=== PATIENT | male | born 1940 | race Caucasian/White ===

== ENCOUNTER 2023-01-27 09:38 | Inpatient (IN) | payer OTHER, MEDICARE ==
[2023-01-27] MEDS ORDERED: Boostrix 0.5 ML (Tdap) VIAL (>/=7 yrs of age) ONE (11:14)
[2023-01-27] MEDS ORDERED: fentaNYL 50 mcg/mL 1 mL Vial ONE (12:17)
[2023-01-27] MEDS ORDERED: Ipratropium/Albuterol 3 ML NEB NEB PRN (12:20)
[2023-01-27] MEDS ORDERED: hydrALAZINE 20 MG/ML VIAL SLOW IVP PRN (12:20)
[2023-01-27] MEDS ORDERED: Ondansetron PF 4 MG/2 ML Vial IVP PRN (12:20)
[2023-01-27 12:51] LABS: #Monocytes 0.4 thou/uL (0.11-0.59); #Neutrophils 2.6 thou/uL (1.40-6.50); %Eosinophils 0.3 % (0.0-10.0); %Monocytes 12.4 % (0.0-10.0); %Neutrophils 75.4 % (42.0-75.0); Hematocrit 33.1 % (42.0-52.0); Hemoglobin 11.1 g/dL (14.0-18.0); Mean Corpuscular HGB CONC 33.5 g/dL (32.0-36.0); Mean Corpuscular Hemoglobin 30.8 pg (27.0-31.0); Mean Corpuscular Volume 91.9 fl (78.0-98.0); Mean Platelet Volume 9.6 fL (7.4-10.4); RBC Distribution Width 14.3 % (11.5-14.5); White Blood Cell (WBC) Count 3.5 10x3/uL (4.8-10.8)
[2023-01-27 12:53] LABS: Platelet Count 65 10x3/uL (130-400)
[2023-01-27 13:04] LABS: INR-International Normal Ratio 1.1; PTT 31.8 sec (22.9-36.1); Prothrombin Time 14.9 sec (12.0-14.7)
[2023-01-27 13:20] LABS: Anion Gap 10 mmol/L (10-20); BUN (Urea Nitrogen) 15 mg/dL (8.4-25.7); Calc. Creatinine Clearance 0 mL/min (70-130); Calcium 9.7 mg/dL (7.8-10.44); Carbon Dioxide 26 mmol/L (23-31); Chloride 103 mmol/L (98-107); Estimated GFR 82; Glucose 128 mg/dL (83-110); Magnesium 1.8 mg/dL (1.6-2.6); Phosphorus 2.6 mg/dL (2.3-4.7); Potassium 4.2 mmol/L (3.5-5.1); Sodium 135 mmol/L (136-145)
[2023-01-27] MEDS: Acetaminophen 500 MG TAB PO SCH ×2 (15:18→17:57)
[2023-01-27 16:57] VITALS: BMI 23.1
[2023-01-27] MEDS ORDERED: CEFAZOLIN 2 GM in Sodium Chloride 0.9% 100 ML IVPB SCH (17:00)
[2023-01-27] MEDS ORDERED: traMADol HCl 50 MG TAB PO PRN (17:18)
[2023-01-27] MEDS: traMADol HCl 50 MG TAB PO SCH (17:58)
[2023-01-27] MEDS: Morphine 2 MG/ML VIAL SLOW IVP PRN (19:55)
[2023-01-28] MEDS: traMADol HCl 50 MG TAB PO SCH ×5 (00:10→23:10)
[2023-01-28] MEDS: Morphine 2 MG/ML VIAL SLOW IVP PRN ×4 (00:11→23:09)
[2023-01-28] MEDS: Acetaminophen 500 MG TAB PO SCH ×5 (00:11→23:10)
[2023-01-28 05:39] LABS: #Eosinphils 0.1 thou/uL (0.0-0.7); #Monocytes 0.6 thou/uL (0.11-0.59); #Neutrophils 2.1 thou/uL (1.40-6.50); %Eosinophils 2.3 % (0.0-10.0); %Lymphocytes 16.7 % (21.0-51.0); %Monocytes 18.7 % (0.0-10.0); Hematocrit 32.9 % (42.0-52.0); Hemoglobin 10.8 g/dL (14.0-18.0); Mean Corpuscular HGB CONC 32.8 g/dL (32.0-36.0); Mean Corpuscular Hemoglobin 30.5 pg (27.0-31.0); Mean Corpuscular Volume 92.9 fl (78.0-98.0); Mean Platelet Volume 9.4 fL (7.4-10.4); RBC Distribution Width 14.4 % (11.5-14.5); Red Blood Cell (RBC) Count 3.54 mill/uL (4.70-6.10); White Blood Cell (WBC) Count 3.4 10x3/uL (4.8-10.8)
[2023-01-28 05:46] LABS: Platelet Count 59 10x3/uL (130-400)
[2023-01-28 06:05] LABS: Anion Gap 11 mmol/L (10-20); BUN (Urea Nitrogen) 13 mg/dL (8.4-25.7); Calc. Creatinine Clearance 75 mL/min (70-130); Calcium 9.1 mg/dL (7.8-10.44); Carbon Dioxide 25 mmol/L (23-31); Chloride 104 mmol/L (98-107); Estimated GFR 86; Glucose 113 mg/dL (83-110); Potassium 3.9 mmol/L (3.5-5.1); Sodium 136 mmol/L (136-145)
[2023-01-28] MEDS ORDERED: fentaNYL PF 100 MCG/2 ML SYRINGE ONE (07:14)
[2023-01-28] MEDS ORDERED: Sodium Chloride 0.9% 100 ML ONE (08:05)
[2023-01-28] MEDS ORDERED: CEFAZOLIN 2 GM VIAL ONE (08:05)
[2023-01-28] MEDS ORDERED: Rocuronium Bromide 10 MG/ML (10ML VIAL) ONE (08:16)
[2023-01-28] MEDS ORDERED: Dexamethasone 20 MG/5 ML VIAL ONE (08:16)
[2023-01-28] MEDS ORDERED: PHENYLEPHRINE-NS 100 MCG/ML 10 ML SYRINGE ONE (08:16)
[2023-01-28] MEDS ORDERED: Ondansetron PF 4 MG/2 ML Vial ONE (08:16)
[2023-01-28] MEDS ORDERED: Lidocaine 1% PF 5 ML VIAL ONE (08:16)
[2023-01-28] MEDS ORDERED: PROPOFOL 200 MG/20 ML VIAL ONE (08:16)
[2023-01-28] MEDS ORDERED: SUGAMMADEX SODIUM 200 MG/2 ML VIAL ONE (08:52)
[2023-01-28] MEDS ORDERED: Promethazine HCl 25 MG/ML VIAL IM PRN (08:54)
[2023-01-28] MEDS ORDERED: Ondansetron HCl/PF 4 MG/2 ML Vial IVP PRN (08:54)
[2023-01-28] MEDS ORDERED: fentaNYL 50 mcg/mL 1 mL Vial ONE ×2 (09:49→10:06)
[2023-01-28 14:58] LABS: Bacteria/HPF None Seen HPF (None Seen); Bilirubin Negative (Negative); Blood, Urine Negative (Negative); CAUTI Indications for Culture Alt mental st,lethar; Clarity Clear (Clear); Glucose, Urine (Dipstick) Normal (Negative); Ketone, Urine Trace mg/dL (Negative); Leukocyte Negative Leu/uL (Negative); Nitrite Negative (Negative); Protein, Urine (Dipstick) 20 mg/dL (Neg-Trace); RBC/HPF 0-3 HPF (0-3); Specific Gravity, Urine 1.023 (1.002-1.036); Squamous Epithelial 0-3 HPF (0-3); WBC/HPF 0-3 HPF (0-3); pH, Urine 5.5 (5.0-9.0)
[2023-01-28 15:16] LABS: Urine Culture Reflex No No
[2023-01-28] MEDS: CEFAZOLIN 2 GM in Sodium Chloride 0.9% 100 ML IVPB SCH ×2 (16:27→23:11)
[2023-01-28] MEDS: Amiodarone 200 MG TAB PO SCH (20:30)
[2023-01-29] MEDS: Acetaminophen 500 MG TAB PO SCH ×4 (05:04→23:12)
[2023-01-29] MEDS: traMADol HCl 50 MG TAB PO SCH ×4 (05:05→23:12)
[2023-01-29 06:48] LABS: #Monocytes 0.8 thou/uL (0.11-0.59); #Neutrophils 4.4 thou/uL (1.40-6.50); %Lymphocytes 12.1 % (21.0-51.0); %Monocytes 13.5 % (0.0-10.0); %Neutrophils 73.9 % (42.0-75.0); Hematocrit 32.3 % (42.0-52.0); Hemoglobin 10.6 g/dL (14.0-18.0); Mean Corpuscular HGB CONC 32.8 g/dL (32.0-36.0); Mean Corpuscular Hemoglobin 30.4 pg (27.0-31.0); Mean Corpuscular Volume 92.6 fl (78.0-98.0); Mean Platelet Volume 9.5 fL (7.4-10.4); RBC Distribution Width 14.2 % (11.5-14.5); Red Blood Cell (RBC) Count 3.49 mill/uL (4.70-6.10); White Blood Cell (WBC) Count 5.9 10x3/uL (4.8-10.8)
[2023-01-29 07:12] LABS: Platelet Count 64 10x3/uL (130-400)
[2023-01-29] MEDS: Amiodarone 200 MG TAB PO SCH ×2 (08:39→20:30)
[2023-01-29] MEDS: CEFAZOLIN 2 GM in Sodium Chloride 0.9% 100 ML IVPB SCH (08:39)
[2023-01-29] MEDS: Atorvastatin Calcium 40 MG TAB PO SCH (08:39)
[2023-01-29] MEDS ORDERED: Cyclobenzaprine 10 MG TAB PO PRN (12:20)
[2023-01-29] MEDS ORDERED: Mineral Oil ENEMA PR SCH (14:15)
[2023-01-29] MEDS: Aspirin 81 mg Enteric Coated Tablet PO SCH (20:30)
[2023-01-29] MEDS: CeleCOXIB 100 MG CAP PO SCH (20:31)
[2023-01-30] MEDS: traMADol HCl 50 MG TAB PO SCH ×2 (05:41→11:34)
[2023-01-30] MEDS: Acetaminophen 500 MG TAB PO SCH ×2 (05:41→11:34)
[2023-01-30 06:54] LABS: #Eosinphils 0.1 thou/uL (0.0-0.7); #Monocytes 0.5 thou/uL (0.11-0.59); #Neutrophils 2.2 thou/uL (1.40-6.50); %Basophils 0.3 % (0.0-1.0); %Eosinophils 1.4 % (0.0-10.0); %Lymphocytes 20.1 % (21.0-51.0); %Monocytes 14.4 % (0.0-10.0); %Neutrophils 63.2 % (42.0-75.0); Hematocrit 30.2 % (42.0-52.0); Hemoglobin 9.8 g/dL (14.0-18.0); Mean Corpuscular HGB CONC 32.5 g/dL (32.0-36.0); Mean Corpuscular Hemoglobin 30.1 pg (27.0-31.0); Mean Corpuscular Volume 92.6 fl (78.0-98.0); Mean Platelet Volume 11.9 fL (7.4-10.4); RBC Distribution Width 14.4 % (11.5-14.5); Red Blood Cell (RBC) Count 3.26 mill/uL (4.70-6.10); White Blood Cell (WBC) Count 3.5 10x3/uL (4.8-10.8)
[2023-01-30 07:12] LABS: Platelet Count 64 10x3/uL (130-400)
[2023-01-30] MEDS ORDERED: Ferrous Sulfate 325 MG TAB PO SCH ×2 (08:00→21:00)
[2023-01-30] MEDS: Amiodarone 200 MG TAB PO SCH (08:30)
[2023-01-30] MEDS: Aspirin 81 mg Enteric Coated Tablet PO SCH (08:31)
[2023-01-30] MEDS: CeleCOXIB 100 MG CAP PO SCH (08:31)
[2023-01-30] MEDS: Atorvastatin Calcium 40 MG TAB PO SCH (08:32)
[2023-01-30] MEDS ORDERED: Polyethylene Glycol 3350 17 GM Packet PO SCH (09:00)
[2023-01-30] MEDS ORDERED: Ascorbic Acid 500 mg Chewable Tablet PO SCH (09:00)
[2023-01-30] MEDS ORDERED: FLU VACC QS2023(65UP)/MF59C/PF 60 MCG/0.5 ML SYRINGE IM ONE (09:00)
[2023-01-30] MEDS ORDERED: Non-Formulary Item 1 EACH (Temazepam [Temazepam] 30 MG Capsule) PO SCH (09:00)
[2023-01-30 15:34] VITALS: BP 134/69; TEMP 97.8
[2023-01-30] MEDS ORDERED: Senokot S 8.6-50 MG TAB PO SCH (21:00)
[2023-01-30] MEDS ORDERED: Temazepam 15 MG CAP PO SCH (21:00)
== END 2023-01-30 15:45 | disposition home or self-care (01) | DRG 482 ==
LOC: ERS 09:38 → SURG A 12:20
PROVIDERS: ADMIT Surgery; ATTEND Surgery
PROC: 0QS704Z Reposition Left Upper Femur with Internal Fixation Device, Open Approach (ICD-10-PCS; principal; 2023-01-28)
DX: S72.142A Displaced intertrochanteric fracture of left femur, initial encounter for closed fracture (principal); W01.0XXA Fall on same level from slipping, tripping and stumbling without subsequent striking against object, initial encounter; I10 Essential (primary) hypertension; E78.5 Hyperlipidemia, unspecified; Z95.1 Presence of aortocoronary bypass graft; Z98.890 Other specified postprocedural states
CPT/HCPCS: 36415; 36416; 71045; 80048; 81001; 83735; 83880; 84100; 85025; 85610; 85730; 86850; 86900; 86901; 90471; 90715; 93005; 93010; 96374; C1713; J1100; J2272; J2405; J2704; J3010; J3490

== ENCOUNTER 2023-04-26 09:18 | Outpatient (CLI) | payer MEDICARE, OTHER | END 2023-04-26 09:19 | disposition home or self-care (01) | LOC: MRI 09:18 | PROVIDERS: ATTEND Orthopaedic Surgery | DX: S72.142A Displaced intertrochanteric fracture of left femur, initial encounter for closed fracture (principal); M47.816 Spondylosis without myelopathy or radiculopathy, lumbar region; I71.40 Abdominal aortic aneurysm, without rupture, unspecified | CPT/HCPCS: 72148 ==